=== PATIENT | female | born 1965 | race Caucasian/White ===

== ENCOUNTER 2017-05-23 09:57 | Emergency (ER) | payer MEDICAID ==
[~2017-05-23] VITALS: Wt 72.7 kg
--- NOTE | 2017-05-23 12:46 | ERA ---
ER Documentation Chief Complaint Date/Time DATE: 05/23/17 TIME: 12:38 Chief Complaint l. foot pain on ambulating denies trauma and back pain HPI 51-year-old female presenting with a chief complaints of sharp left lower extremity pain that is on the outside radiating from the hip to the knee. Patient states that is worse when sitting. Describes that there is mild pain in the back. Denies any pain in the groin region or the inside/medial aspect of the leg. Denies any IV drug use, fever, loss of bowel or bladder control, urinary retention, back pain. Patient states that the pain is minimal has been lasting for the past year. History given is a consistent with nursing notes. I have clarified with the patient and she has reiterated that the pain is worse when sitting down and is in the buttocks radiating to the hip down the outside of the left leg and not going past the knee. Denies foot pain. Has no other complaints and describes no other associated manifestations. ROS All systems reviewed and are negative except as per history of present illness. Physical Exam Vitals Vital Signs Date Time Temp Pulse Resp B/P Pulse Ox O2 Delivery O2 Flow Rate FiO2 05/23/17 10:21 98.0 78 20 164/87 99 Physical Exam Const: Well-appearing. Mild distress. Back: No midline, flank or CVA tenderness. Negative straight leg raise bilaterally. Range of motion decreased secondary to pain. Neur: No saddle anesthesia. Neurovascularly intact bilaterally. Head: Normocephalic, Atraumatic. Eyes: Non-injected; No discharge. EOMI and MAURISIO bilaterally. Ears: Normal External Ears, EACs clear, TM normal bilaterally without erythema. Nose: Normal external nose; no discharge, or sinus tenderness. Oral: No oral edema visualized. Mucous membranes moist and pink. Neck: No tenderness. No cervical lymphadenopathy, or masses palpated. Supple ~ No meningismus. Pulm: Good air movement in upper and lower respiratory tracts. Clear to auscultation bilaterally. No dyspnea or stridor. Cardio: Regular rate and rhythm; No murmurs, gallops or rubs auscultated. Radia pulses 2+ bilaterally. No cyanosis noted. Capillary refill less than 2 seconds. Abd: Normal bowel sounds. Soft, non tender, non distended. MS: Normal motor strength, normal tone with gross examination. Skin: No petechiae or rashes. Good turgor. Ext: No edema. Normal movement of all extremities grossly observed. Psych: Normal Mood and Affect. Procedures/MDM Patient was evaluated and worked up for back pain as described in history and physical examination. Patient states she is not currently in pain and refused medications in the ED at this time. Most likely diagnosis is leg pain of unknown etiology versus sciatica. Thus, the treatment plan will include over-the -counter ibuprofen for discomfort as well as conservative therapy which has been discussed with the patient. At this time I do not suspect cauda equina syndrome, central spinal cord compression, aortic involvement, abscess, other bacterial involvement, hip fracture or other bony/necrotic pathologies, or neurovascular compromise. I have spoke with the patient regarding their condition and future management. List of clinics has been given to the patient. They have verbally responded that they understand their status and treatment plan. The patients vitals are stable, and their current condition is appropriate for discharge. The patient will be given discharge instructions with return precautions. Departure Diagnosis: Primary Impression: Sciatica of left side Condition: Stable Patient Instructions: Understanding Sciatica Referrals: COMMUNITY CLINICS YOU HAVE RECEIVED A MEDICAL SCREENING EXAM AND THE RESULTS INDICATE THAT YOU DO NOT HAVE A CONDITION THAT REQUIRES URGENT TREATMENT IN THE EMERGENCY DEPARTMENT. FURTHER EVALUATION AND TREATMENT OF YOUR CONDITION CAN WAIT UNTIL YOU ARE SEEN IN YOUR DOCTORS OFFICE WITHIN THE NEXT 1-2 DAYS. IT IS YOUR RESPONSIBILITY TO MAKE AN APPOINTMENT FOR FOLOW-UP CARE. IF YOU HAVE A PRIMARY DOCTOR --you should call your primary doctor and schedule an appointment IF YOU DO NOT HAVE A PRIMARY DOCTOR YOU CAN CALL OUR PHYSICIAN REFERRAL HOTLINE AT IF YOU CAN NOT AFFORD TO SEE A PHYSICIAN YOU CAN CHOSE FROM THE FOLLOWING [facility] [address] [facility] [address] [facility]. [facility] [address] [facility] [address] [facility]. [facility] [address] [facility]. [facility]. [address] COUNTS INCLUDE 234 BEDS AT THE [facility] Jared se goldberg hecho un examen mdico de control que le indica que no est en josh condicin que requiera tratamiento urgente en el Departamento de Emergencia. Un estudio ms profundo y el tratamiento de saeed condicin pueden esperar sin ningn riesgo hasta que usted sea atendida/o en el consultorio de saeed mdico o josh cl jesse. Es responsabilidad suya arreglar josh purvi para el seguimiento del hua. MANEJO DE CONDICIONES NO URGENTES EN EL FUTURO 1) Si usted tiene un mdico de atencin primaria: Jared debera llamar a saeed mdico de atencin primaria antes de venir al departamento de emergencia. Despus de las horas de consultorio, saeed doctor o saeed asociado/a est disponible por telfono. El mdico o enfermero de reginald en el servicio telefnico puede asesorarle por leelee medio para atender el problema, o hua contrario se puede programar josh purvi. 2) Si usted no tiene un mdico de atencin primaria: Llame al mdico o clnica de referencia que aparece abajo agustin las horas de consultorio para hacer josh purvi para que le vean. CLINICAS: [facility] [phone] [facility] [phone] [facility] [phone] [address] [facility] [phone] [facility] [phone] [address] [facility]. [phone] [address] Additional Instructions: Kole un seguimiento con saeed PCP dentro de los prximos 1-3 toro para josh evaluaci n ms completa y josh posible derivacin a un especialista. Devuelva el departamento de emergencia inmediatamente si los sntomas empeoran o cambian. Si tiene alguna pregunta con respecto a los medicamentos, consulte con saeed farmac utico o con nosotros antes de salir. Si se producen reacciones adversas mientras joan norma medicamentos, suspenda el tratamiento y regrese inmediatamente al servicio de urgencias. Marceline norma medicamentos segn las indicaciones y complete el curso completo del tratamiento. RALPH ORELLANA PA-C May 23, 2017 12:46
[2017-05-23 13:03] VITALS: BP 158/85; PULSE 76; RESP 18; TEMP 98.1
== END 2017-05-23 13:03 | disposition home or self-care (01) ==
LOC: FTE 09:57
DX: M54.32 Sciatica, left side (principal)
CPT/HCPCS: 99282

== ENCOUNTER 2018-02-26 06:53 | Day surgery (SDC) | END 2018-02-26 17:26 | disposition home or self-care (01) ==

== ENCOUNTER 2018-04-16 08:23 | Day surgery (SDC) | END 2018-04-16 16:26 | disposition home or self-care (01) ==